=== PATIENT | female | born 1965 ===

== ENCOUNTER 2020-06-28 15:03 | Emergency (ER) | payer OTHER ==
[~2020-06-28] VITALS: Ht 162.6 cm; Wt 81.6 kg
[2020-06-28] MEDS ORDERED: GLUMETZA500 MG (15:15)
== END 2020-06-28 18:52 | disposition home or self-care (01) ==
LOC: ER 15:03
DX: M62.838 Other muscle spasm (principal); M54.5 Low back pain; N20.0 Calculus of kidney